=== PATIENT | male | born 1950 | race Caucasian/White ===

== ENCOUNTER 2021-08-02 06:15 | Inpatient (IN) ==
[2021-08-02] MEDS ORDERED: Albuterol 2.5 MG/3 ML NEBULIZER IH ONE (06:30)
[2021-08-02] MEDS ORDERED: Acetaminophen IV 1,000 MG/100 ML BAG IVPB ONE (06:30)
[2021-08-02] MEDS ORDERED: Famotidine 20 MG/2 ML VIAL IVP ONE (06:30)
[2021-08-02] MEDS ORDERED: Lidocaine -MPF 2% 2 ML VIAL ONE (06:59)
[2021-08-02] MEDS ORDERED: *HR* Succinylcholine 200 MG/10 ML VIAL IVP ONE (06:59)
[2021-08-02] MEDS ORDERED: Ondansetron 4 MG/2 ML VIAL ONE (06:59)
[2021-08-02] MEDS ORDERED: *HR* Midazolam HCl 2 MG/2 ML VIAL ONE (06:59)
[2021-08-02] MEDS ORDERED: *HR* Propofol 200 MG/20 ML VIAL IVP ONE (06:59)
[2021-08-02] MEDS ORDERED: *HR* FentaNYL (PF) 100 MCG/2 ML VIAL ONE ×2 (06:59→13:07)
[2021-08-02] MEDS ORDERED: *HR* Rocuronium Bromide 50 MG/5 ML VIAL ONE (06:59)
[2021-08-02] MEDS ORDERED: *HR* Phenylephrine 10 MG/ML VIAL ONE (07:00)
[2021-08-02] MEDS ORDERED: EPHEDrine 50 MG/ML VIAL ONE (07:00)
[2021-08-02] MEDS ORDERED: *HR* Remifentanil 2 MG VIAL IVP ONE ×2 (07:07→09:14)
[2021-08-02] MEDS ORDERED: Vancomycin 1,000 MG VIAL ONE (07:08)
[2021-08-02] MEDS ORDERED: CeFAZolin Syr 2,000MG/20 ML 2,000 MG/20 ML SYRINGE IVPB ONE (07:10)
[2021-08-02] MEDS ORDERED: Ringers Solution, Lactated 1,000 ML IVC SCH (07:15)
[2021-08-02] MEDS ORDERED: Polymyxin B Sulfate 500,000 UNIT, Sodium Chloride IRRigation 1,000 ML IR ONE (07:45)
[2021-08-02] MEDS ORDERED: Ondansetron 4 MG/2 ML VIAL IVP PRN ×2 (08:17→16:10)
[2021-08-02] MEDS ORDERED: *HR* Remifentanil 1 MG VIAL IVP ONE ×2 (10:57→11:51)
[2021-08-02] MEDS: *HR* FentaNYL (PF) 100 MCG/2 ML VIAL IVP PRN ×3 (13:51→14:08)
[2021-08-02] MEDS: *HR* HYDROmorphone PF 0.5 MG/0.5 ML SYRINGE IVP PRN ×4 (14:17→14:44)
[2021-08-02] MEDS ORDERED: ACETAMINOPHEN 650 MG PO PRN (16:10)
[2021-08-02] MEDS ORDERED: Naloxone 0.4 MG/ML INJ IVP PRN (16:10)
[2021-08-02] MEDS: CeFAZolin 2 GM/120 ML BAG IVPB SCH ×2 (16:44→23:11)
[2021-08-02] MEDS: *HR* OxyCODONE Immed Rel 5 MG TABLET PO PRN (16:44)
[2021-08-02] MEDS: Ringers Solution, Lactated 1,000 ML IVC SCH (16:44)
[2021-08-02] MEDS: *HR* HYDROcodone/Acet 5/325 mg TABLET PO PRN (19:21)
[2021-08-02] MEDS: Gabapentin 300 MG CAPSULE PO SCH (19:48)
[2021-08-02] MEDS: tiZANidine 4 MG TABLET PO SCH ×2 (19:48→23:17)
[2021-08-02] MEDS ORDERED: Gabapentin 100 MG CAPSULE PO SCH (21:00)
[2021-08-02] MEDS: Acetaminophen 325 MG TABLET PO PRN (23:17)
[2021-08-03] MEDS: *HR* OxyCODONE Immed Rel 5 MG TABLET PO PRN ×3 (03:36→22:40)
[2021-08-03] MEDS: tiZANidine 4 MG TABLET PO SCH ×2 (07:22→21:11)
[2021-08-03 07:42] LABS: Basophils % 0.1 %; Hematocrit 31.2 % (37.5-50.1); Hemoglobin 10.7 g/dL (12.9-16.9); Immature Granulocytes % 0.6 % (0-4); Lymphocytes # 0.9 K/mcL (0.6-4.6); Lymphocytes % 7.7 %; Mean Corpuscular HGB Conc 34.3 g/dL (31.6-35.5); Mean Corpuscular Hemoglobin 31.7 pg (28.0-33.3); Mean Corpuscular Volume 92.3 fL (83.0-100.0); Monocytes # 0.8 K/mcL (0.0-1.3); Monocytes % 6.7 %; Neutrophils # 10.1 K/mcL (1.6-8.9); Platelet Count 163 K/mcL (140-400); Red Blood Count 3.38 M/mcL (4.19-5.50); Red Cell Distribution Width 12.3 % (11.5-14.5); Segmented Neutrophils % 84.9 %; White Blood Count 11.9 K/mcL (4.3-11.1)
[2021-08-03] MEDS: Aspirin Enteric Coated 81 MG Tablet PO SCH (10:07)
[2021-08-03] MEDS: Metoprolol XL (24 HR) Succ 50 MG TAB.ER.24H PO SCH (10:07)
[2021-08-03] MEDS: Valsartan 160 MG TABLET PO SCH (10:08)
[2021-08-03] MEDS: allopurinoL 100 MG TABLET PO SCH (10:08)
[2021-08-03] MEDS: Acetaminophen 325 MG TABLET PO PRN (13:46)
[2021-08-03] MEDS: Simethicone 80 MG TAB.CHEW PO SCH ×2 (14:13→21:11)
[2021-08-03] MEDS: Gabapentin 300 MG CAPSULE PO SCH (21:11)
[2021-08-04] MEDS: *HR* OxyCODONE Immed Rel 5 MG TABLET PO PRN ×3 (03:53→20:38)
[2021-08-04 05:51] LABS: Basophils % 0.3 %; Eosinophils % 0.2 %; Hematocrit 30.4 % (37.5-50.1); Hemoglobin 10.3 g/dL (12.9-16.9); Immature Granulocytes % 0.5 % (0-4); Lymphocytes % 15.2 %; Mean Corpuscular HGB Conc 33.9 g/dL (31.6-35.5); Mean Corpuscular Hemoglobin 31.8 pg (28.0-33.3); Mean Corpuscular Volume 93.8 fL (83.0-100.0); Mean Platelet Volume 9.9 fL (9.4-12.4); Monocytes # 1.1 K/mcL (0.0-1.3); Monocytes % 8.4 %; Neutrophils # 10.1 K/mcL (1.6-8.9); Platelet Count 169 K/mcL (140-400); Red Blood Count 3.24 M/mcL (4.19-5.50); Red Cell Distribution Width 12.5 % (11.5-14.5); Segmented Neutrophils % 75.4 %; White Blood Count 13.3 K/mcL (4.3-11.1)
[2021-08-04] MEDS: diazePAM 10 MG TABLET PO PRN (06:05)
[2021-08-04] MEDS: Metoprolol XL (24 HR) Succ 50 MG TAB.ER.24H PO SCH (07:48)
[2021-08-04] MEDS: allopurinoL 100 MG TABLET PO SCH (07:48)
[2021-08-04] MEDS: Aspirin Enteric Coated 81 MG Tablet PO SCH (07:48)
[2021-08-04] MEDS: Simethicone 80 MG TAB.CHEW PO SCH ×3 (07:48→20:38)
[2021-08-04] MEDS: tiZANidine 4 MG TABLET PO SCH ×2 (07:49→20:38)
[2021-08-04] MEDS: Acetaminophen 325 MG TABLET PO PRN (07:49)
[2021-08-04] MEDS: Valsartan 160 MG TABLET PO SCH (07:49)
[2021-08-04] MEDS ORDERED: Gabapentin 300 MG CAPSULE PO SCH (09:00)
[2021-08-04] MEDS: Gabapentin 300 MG CAPSULE PO SCH ×2 (12:42→20:39)
[2021-08-05] MEDS: diazePAM 10 MG TABLET PO PRN ×3 (01:35→20:53)
[2021-08-05] MEDS: *HR* OxyCODONE Immed Rel 5 MG TABLET PO PRN ×2 (01:35→05:44)
[2021-08-05] MEDS: Acetaminophen 325 MG TABLET PO PRN (05:48)
[2021-08-05] MEDS: allopurinoL 100 MG TABLET PO SCH (08:51)
[2021-08-05] MEDS: Valsartan 160 MG TABLET PO SCH (08:51)
[2021-08-05] MEDS: Aspirin Enteric Coated 81 MG Tablet PO SCH (08:51)
[2021-08-05] MEDS: Gabapentin 300 MG CAPSULE PO SCH ×3 (08:51→20:42)
[2021-08-05] MEDS: Metoprolol XL (24 HR) Succ 50 MG TAB.ER.24H PO SCH (08:51)
[2021-08-05] MEDS: Simethicone 80 MG TAB.CHEW PO SCH ×3 (08:52→20:42)
[2021-08-05] MEDS: tiZANidine 4 MG TABLET PO SCH (08:52)
[2021-08-05] MEDS: tiZANidine 4 MG TABLET PO PRN (15:14)
[2021-08-05] MEDS: *HR* HYDROcodone/Acet 5/325 mg TABLET PO PRN ×2 (15:15→22:26)
[2021-08-05] MEDS ORDERED: 0.9 % Sodium Chloride 500 ML IV ONE (19:09)
[2021-08-05] MEDS: Ringers Solution, Lactated 1,000 ML IVC SCH (20:43)
[2021-08-06] MEDS: *HR* OxyCODONE Immed Rel 5 MG TABLET PO PRN ×3 (00:43→12:55)
[2021-08-06] MEDS: *HR* HYDROcodone/Acet 5/325 mg TABLET PO PRN (04:25)
[2021-08-06] MEDS: diazePAM 10 MG TABLET PO PRN (06:32)
[2021-08-06] MEDS: Metoprolol XL (24 HR) Succ 50 MG TAB.ER.24H PO SCH (08:41)
[2021-08-06] MEDS: Aspirin Enteric Coated 81 MG Tablet PO SCH (08:41)
[2021-08-06] MEDS: Valsartan 160 MG TABLET PO SCH (08:41)
[2021-08-06] MEDS: allopurinoL 100 MG TABLET PO SCH (08:41)
[2021-08-06] MEDS: Simethicone 80 MG TAB.CHEW PO SCH (08:41)
[2021-08-06] MEDS: Gabapentin 300 MG CAPSULE PO SCH (08:41)
[2021-08-06] MEDS: tiZANidine 4 MG TABLET PO PRN (08:44)
[2021-08-06 14:17] VITALS: BP 132/79; PULSE 73; TEMP 98; O2SAT 97
== END 2021-08-06 14:16 | disposition home or self-care (01) | DRG 460 ==
LOC: 4WAOSI 06:15 → SDCAOSI 06:15 → 4WAOSI 15:11
PROVIDERS: ADMIT Orthopaedic Surgery Orthopaedic Surgery of the Spine; ATTEND Orthopaedic Surgery Orthopaedic Surgery of the Spine